=== PATIENT | male | born 1935 | race Caucasian/White ===

== ENCOUNTER 2021-04-24 14:41 | Outpatient (CLI) | payer MEDICARE, SELFPAY ==
--- NOTE | ~2021-04-24 | XR_ITS ---
EXAMINATION: XR abdomen/kub 1V INDICATION: History of kidney stones TECHNIQUE: Supine views of the abdomen were obtained on 2 radiographs. COMPARISON: None FINDINGS: A 12 mm stone projects in the expected location of the right kidney lower pole. Calcificati ons of the pelvis have the appearance of phleboliths. No definite additional urolithiasis is identifi ed. There is mild osteoarthritis of the hips. The bowel gas pattern is normal. IMPRESSION: 1. Right nephrolithiasis. Reviewed, dictated and finalized at location A. IMPRESSION: 1. Right nephrolithiasis.
== END 2021-04-24 14:42 | disposition home or self-care (01) ==
LOC: ANHIMG 14:54
PROVIDERS: Visit Provider Nurse Practitioner Adult Health
DX: N20.0 Calculus of kidney (principal)
CPT/HCPCS: 74018

== ENCOUNTER 2021-05-07 10:58 | Outpatient (CLI) | payer MEDICARE, SELFPAY ==
[2021-05-07 11:39] LABS: Prothrombin Time 13.4 Seconds (11.1-14.7)
[2021-05-07 11:40] LABS: Partial Thromboplastin Time 24.6 SECONDS (22.3-36.8)
[2021-05-07 11:43] LABS: Anion Gap 6 mmol/L (8-16); Blood Urea Nitrogen 22 mg/dL (9-20); Calcium 9.1 mg/dL (8.4-10.2); Carbon Dioxide 29 mmol/L (22-30); Chloride 104 mmol/L (98-107); Estimated Glomerular Filt Rate > 60; Glucose 189 mg/dL (65-110); Potassium 4.4 mmol/L (3.4-5.0); Sodium 139 mmol/L (137-145)
== END 2021-05-07 10:59 | disposition home or self-care (01) ==
LOC: ANHSURGERY 11:12
PROVIDERS: Anesthesiology; Visit Provider Urology
DX: N20.0 Calculus of kidney (principal); E11.9 Type 2 diabetes mellitus without complications; Z01.818 Encounter for other preprocedural examination
CPT/HCPCS: 36415; 80048; 85610; 85730; 87086; 87088

== ENCOUNTER 2021-05-11 00:50 | Day surgery (SDC) | payer MEDICARE, SELFPAY ==
[2021-04-30 15:35] VITALS: BMI 26.6
[2021-05-11] VITALS (8 sets, daily range): BP systolic 128–150; BP diastolic 65–80; PULSE 54–70; RESP 11–16; TEMP 36.4–36.8; O2SAT 99–100
--- NOTE | ~2021-05-11 | XR_ITS ---
XR abdomen/kub 1V DATE: 05/11/2021 06:47 INDICATION: Nephrolithiasis; lithotripsy TECHNIQUE: AP projection, 2 views COMPARISON: 04/24/2021 KUB FINDINGS: An approximately 1 cm calcification overlies the right kidney, present on 04/24/2021. Bilateral calcified pelvic phleboliths. No visceromegaly is evident. The bowel gas pattern is unremarkable, without evidence of obstruction. Multilevel degenerative disc disease of the lumbar spine. IMPRESSION: Approximately 1 cm calcification overlying the right renal silhouette Reviewed, dictated and finalized at [facility]. Reviewed, dictated and finalized at location A. IMPRESSION: Approximately 1 cm calcification overlying the right renal silhouet te
--- NOTE | 2021-05-11 06:52 | WPDHPUPDATE1 ---
History and Physical Update Update Date/Time: 05/11/21 06:52 History and Physical has been reviewed, including an updated exam of the patient. There are NO changes in the patient's condition. Risks, benefits, and alternatives have been discussed and questions answered. Patient agrees to proceed with procedure.
[2021-05-11 07:09] LABS: Glucose Point of Care 164 mg/dl (65-105)
--- NOTE | 2021-05-11 07:48 | WPDANESEPPF ---
Anes - Initial Pre Proc Eval Procedure: Operation Date: 05/11/21 08:30 Proposed Procedures p Right Renal, Extracorporeal Shock Wave Lithotripsy - Ludin Robbins MD Date/Time: 05/11/21 07:48 Surgeon: Ludin Robbins MD Pre Op Diagnosis: renal kidney stone 12mm Patient Data Age: 86 Gender: M Height: 1.63 m Weight: 72.8 kg Last Vital Signs Temp 36.8 C 05/11/21 07:12 Pulse 70 05/11/21 07:12 Resp 16 05/11/21 07:12 BP 149/65 H 05/11/21 07:12 Pulse Ox 99 05/11/21 07:12 Allergies Allergy/AdvReac Type Severity Reaction Status Date / Time No Known Allergies Allergy Verified 05/11/21 06:57 Home Medications Medication Instructions Recorded Confirmed Type aspirin [Adult Low Dose Aspirin] 81 mg PO DAILY 04/30/21 05/11/21 History atorvastatin 40 mg PO DAILY 04/30/21 05/11/21 History cholecalciferol (vitamin D3) 50 mcg PO DAILY 04/30/21 05/11/21 History glipizide 5 mg PO DAILY 04/30/21 05/11/21 History multivitamin,ez-wvej-ollmionw 1 tablet PO DAILY 04/30/21 05/11/21 History [Complete Multivitamin] tamsulosin 0.4 mg PO HS 04/30/21 05/11/21 History Laboratory Tests 05/11/21 07:05 POC Capillary Glucose 164 mg/dl H mg/dl (65-105) Patient hx anesthesia problems: none Family hx anesthesia problems: none Results Review: All pre-operative results and documents have been reviewed as part of the pre-operative evaluation. [facility] Past Medical History Medical History Arthritis Diabetes Hyperlipidemia Social History Social History Smoking status: Never smoker Living arrangements: alone Spiritual care concerns: No Anes - Eval Final PreProcedure Day of Procedure 05/11/21 07:48 Patient weight: overweight Heart: regular rate and rhythm Lungs: clear to auscultation Airway: Mallampati scale class II Neurological: alert and oriented Last oral intake: >/= 8 hours ASA classification: III Emergent: no Anesthetic plan: proceed Anesthesia type and monitoring: general LMA and standard monitoring Results Review: All pre-operative results and documents have been reviewed as part of the pre-operative evaluation. Informed Consent: The patient's anesthetic plan and its attendant risks and benefits were discussed with the patient/family/POA. Questions were solicited and answers provided to the satisfaction of the patient/family/POA.
[2021-05-11] MEDS: LACTATED RINGERS 1,000 ML 30 ML IV CONT (07:57)
[2021-05-11] MEDS: ceFAZolin 2 GM/D5W 50 ML 2 GM/50 ML BAG IVPB (08:27)
--- NOTE | 2021-05-11 08:49 | W.PM.PROC2 ---
Procedure Note - Detailed Date of Procedure 05/11/21 Pre-op Diagnosis Right renal stone Post-op Diagnosis same Procedure Performed Right ESWL Surgeon Ludin Robbins MD Anesthesia general Description of Procedure The patient was brought to the operative suite where he was placed in the supine position on the Dornier lithotripsy table. The focal point of the lithotripter was placed at a 12mm right lower calycea calculus. A total of 2500 shocks were delivered at a power setting of 4. There appeared to be good fragmentation of the stone. The patient tolerated the procedure well and was taken to the recovery room in good condition. Estimated Blood Loss 0 Drains No Packing No Pathology none sent Complications No immediate complications Condition stable Disposition PACU
[2021-05-11 09:14] LABS: Glucose Point of Care 155 mg/dl (65-105)
== END 2021-05-11 11:05 | disposition home or self-care (01) ==
PROVIDERS: Visit Provider Urology
PROC: (CPT 50590; principal; 2021-05-11 08:30)
DX: N20.0 Calculus of kidney (principal); E11.9 Type 2 diabetes mellitus without complications; E78.5 Hyperlipidemia, unspecified; Z79.84 Long term (current) use of oral hypoglycemic drugs; Z79.82 Long term (current) use of aspirin
CPT/HCPCS: 50590; 36415; 74018; 80048; 82948; 85610; 85730; 87086; 87088; J0690; J1100; J2405; J2704; J3010; J7120

== ENCOUNTER 2021-05-22 14:17 | Outpatient (CLI) | payer MEDICARE, SELFPAY ==
--- NOTE | ~2021-05-22 | XR_ITS ---
XR abdomen/kub 1V 05/22/2021 14:32 Indication: Renal stone Procedure: KUB Comparison: 05/11/2021 Findings: There are right renal stones. There is a stone near the expected location of the right UPJ. There are pelvic phleboliths unchanged. Bowel gas pattern is nonobstructive. No acute osseous abnorm ality. Mild lumbar spondylosis. Impression: 1: Right nephrolithiasis with probable 9 mm stone at the right UPJ. Reviewed, dictated and finalized at location A. Impression: 1: Right nephrolithiasis with probable 9 mm stone at the right UPJ.
== END 2021-05-22 14:18 | disposition home or self-care (01) ==
LOC: ANHIMG 14:19
PROVIDERS: Visit Provider Urology
DX: N20.0 Calculus of kidney (principal)
CPT/HCPCS: 74018

== ENCOUNTER 2021-11-03 14:39 | Outpatient (CLI) | payer MEDICARE, SELFPAY ==
--- NOTE | ~2021-11-03 | XR_ITS ---
EXAM: XR abdomen/kub 1V HISTORY: RT RENAL STONE COMPARISON: 05/22/2021. FINDINGS: Lung bases clear. Normal bowel gas pattern. No organomegaly. Right inferior pole stone has advanced to the mid ureter. Stone or stones previously located at the right UPJ have advanced to the distal right ureter. Stable phleboliths. IMPRESSION: Interval advancement of the right renal stones, as described above. Reviewed, dictated and finalized at location K.
== END 2021-11-03 14:40 | disposition home or self-care (01) ==
LOC: ANHIMG 14:46
PROVIDERS: Visit Provider Urology
DX: N20.0 Calculus of kidney (principal)
CPT/HCPCS: 74018

== ENCOUNTER 2021-11-08 12:27 | Outpatient (CLI) | payer MEDICARE, SELFPAY ==
--- NOTE | ~2021-11-08 | CT_ITS ---
EXAMINATION: CT abdomen pelvis wo con EXAM DATE: 11/08/2021 12:48 INDICATION: Right flank pain. History of kidney stones. TECHNIQUE: Spiral CT of the abdomen and pelvis was performed without contrast. Axial, coronal and sag ittal images were reviewed. The dose-length product (DLP) for this examination was 197.94 mGy-cm. T he exposure was tailored according to patient size (auto mA exposure control), and iterative reconstr uction (ASIR) was used as additional dose reduction technique. There is no prior study for compariso n. FINDINGS: There is a stone in the distal aspect right ureter measuring 4 x 6 mm, 2 cm from the ureter ovesicular junction (axial image 143. No hydronephrosis at present. No other genitourinary calcificat ions. There is mild to moderate bilateral renal atrophy. Mild prostatomegaly. Small to moderate left , small right inguinal fat-containing hernias. The bladder is undistended at time of imaging. The l iver, spleen, adrenal glands and pancreas are unremarkable. Gallbladder is unremarkable. No biliary obstruction. There is no retroperitoneal or pelvic lymphadenopathy. There is moderate scattered a rteriosclerotic disease. The appendix is normal. There is extensive sigmoid predominant colonic diverticulosis. There is no a djacent inflammatory change to suggest diverticulitis. The stomach and small bowel are unremarkable. There is expected amount of colonic stool. No free intraperitoneal gas. The heart is normal in s ize. There are no pericardial or pleural effusions. The lung bases are unremarkable. There are no osteoblastic or osteolytic lesions identified. IMPRESSION: 1. Left distal ureteral 6 pelvic or stone. No hydronephrosis at present. 2. Mild to moderate bilateral renal atrophy. 3. Colonic diverticulosis. Reviewed, dictated and finalized at location B.
== END 2021-11-08 12:28 | disposition home or self-care (01) ==
LOC: ANHIMG 12:27
PROVIDERS: Visit Provider Urology
DX: N20.1 Calculus of ureter (principal); K57.30 Diverticulosis of large intestine without perforation or abscess without bleeding
CPT/HCPCS: 74176